=== PATIENT | female | born 1975 | race Caucasian/White ===

== ENCOUNTER 2017-02-26 07:16 | Day surgery (SDC) | payer OTHER ==
[~2017-02-26] VITALS: Ht 172.7 cm; Wt 102.2 kg
[2017-02-26] VITALS (13 sets, daily range): BP systolic 111–135; BP diastolic 62–85; PULSE 74–93; RESP 13–20; O2SAT 94–100
[~2017-02-26 07:16] MED LIST: BUPR150T8 PO; Bupivacaine Liposome 1.3% 20 mL Inj INFILTRATE ONE; HYDR-3091 PO; Lactated Ringer's 1,000 ML IV ONE
[2017-02-26] MEDS ORDERED: Ondansetron 2 mg/mL 2 mL Inj ONE (07:17)
[2017-02-26] MEDS ORDERED: Propofol 10,000 mCg/mL 20 mL Inj ONE (07:17)
[2017-02-26] MEDS ORDERED: Ropivacaine-PF 0.5% 30 mL Inj ONE (07:17)
[2017-02-26] MEDS ORDERED: MetoCLOpramide 5 mg/mL 2 mL Inj ONE (07:17)
[2017-02-26] MEDS ORDERED: fentaNYL-PF 50 mCg/mL 2 mL Inj ONE (07:17)
[2017-02-26] MEDS ORDERED: ALPR0.5T PO (07:34)
[2017-02-26] MEDS ORDERED: CeFAZolin 2 Gm/50 mL D5W Duplex Bag IV ONE (07:35)
[2017-02-26] MEDS: Vancomycin Inj 1,500 MG in 0.9% Sodium Chloride 500 ML IV ONE ×2 (07:53→07:58)
[2017-02-26] MEDS: CeFAZolin 2 Gm/50 mL D5W IV Premix IV ONE ×2 (07:57→09:09)
[2017-02-26] MEDS ORDERED: Bupivacaine-MPF 0.5% W/EPI 30 mL Inj INFILTRATE ONE (09:43)
[2017-02-26] MEDS ORDERED: Lactated Ringer's 500 ML IV PRN (09:46)
[2017-02-26] MEDS ORDERED: Lactated Ringer's 1,000 ML IV SCH (09:46)
[2017-02-26] MEDS ORDERED: Phenylephrine 10,000 mCg/mL Inj IVPUSH PRN (09:50)
[2017-02-26] MEDS ORDERED: MetoCLOpramide 5 mg/mL 2 mL Inj IVPUSH PRN (09:50)
[2017-02-26] MEDS ORDERED: Atropine 0.4 mg/mL Inj IVPUSH PRN (09:50)
[2017-02-26] MEDS ORDERED: Ondansetron 2 mg/mL 2 mL Inj IVPUSH PRN (09:50)
[2017-02-26] MEDS ORDERED: HYDROmorphone 1 mg/mL Inj IVPUSH PRN (09:50)
[2017-02-26] MEDS ORDERED: EPHEDrine Sulfate 50 mg/mL Inj IVPUSH PRN (09:50)
[2017-02-26] MEDS ORDERED: Labetalol 5 mg/mL 20 mL Inj IV PRN (09:50)
--- NOTE | 2017-02-26 09:50 | PCM.HPANE ---
Patient Data Date of Service: Feb 26, 2017 (0830) Surgeon Admitting Provider: Attending Provider:Peter Benton MD Primary Care Physician:Ross Cates Other Provider:Cortes Muñoz Anesthesia Reason for Visit Left Knee Pain Ht/WT & BMI Height (Feet): 5 Height (Inches): 8 Weight (Kilograms): 102.2 Body Mass Index 34.00 Allergies Coded Allergies: No Known Allergies (Unverified , 02/19/17) Past Anesthesia History Anesthesia History: Denies:: Abnormal Airway, Anesthesia Reactions, Difficult Intubation, Fam Anesthesia Reaction, Fam Malignant Hypertherm, Malignant Hyperthermia Diabetes History Hx Diabetes?: No MRSA MRSA: No Medications Hypertension Medication: No Home Meds Incl Beta Nithin: No Reported Medications Alprazolam (Xanax)0.5 Mg Tablet0.5 Mg PO TID PRN For Anxiety Ref 0 02/26/17 Bupropion ER (Wellbutrin SR)150 Mg Tablet.er150 Mg PO BID Ref 0 02/19/17 Hydrocodone-Acetaminophen 7.5-300 mg 1 Each Tablet1 Each PO Q4 PRN For Pain Ref 0 02/19/17 History History of ENT Problems?: Yes HEENT History: Positive for:: TMJ (grinds teeth, no nightguard) Denies:: Abnormal Airway Cataracts Difficult Intubation Dysphagia Glaucoma Hearing Problem Sinus Problem Denture Type: None Teeth Condition: Broken Teeth (see below) Other HEENT Pertinent History: chipped tooth- canine tooth in back, filling fell out Hx of Heart Problems?: No Cardiovascular History: Denies:: AICD Abdominal Aortic Aneurism Atrial Fibrillation Cardiac Surgery Chest Pain Congestive Heart Failure Coronary Artery Disease Edema Heart Murmur Hypertension Irregular Heartbeat Pacemaker Peripheral Vascular Rheumatic Fever Thrombophlebitis Valvular Heart Disease Hx of Respiratory Problem?: No Respiratory History: Denies:: Asthma COPD Chest Surgery Cough Dyspnea Emphysema Hemoptysis Oxygen Administration Pneumonia Pulmonary Embolism Tuberculosis Use of C-PAP Machine Use of Inhalers / NEBS Hx Neurologic Problems?: No Neurological History: Denies:: Alzheimer's Disease CVA Dementia Dizziness Headaches Multiple Sclerosis Parkinson's Disease Peripheral Neuropathy Seizures TIA Hx of GI Problems?: No Gastrointestinal History: Denies:: Cirrhosis Diverticulitis Gall Bladder Disease Gastroesphageal Reflux Gastrointestinal Bleeding Heartburn Hepatitis Hiatal Hernia Liver Disease Rectal Bleeding Hx of Problems?: No Genitourinary History: Denies:: HX of Hemodialysis Kidney Stones Urinary Tract Infection HX of Peritoneal Dialysis: No Female Hx: Denies:: Currently Endometriosis Pelvic Inflammatory Problems with Breasts? Skin History: Denies:: History Skin Disorders? Pressure Ulcers Hx Musculoskeletal Problems?: Yes Musculoskeletal History: Positive for:: Musculoskeletal Trauma (left knee current admission problem) Osteoarthritis Rheumatoid Arthritis Denies:: Back Injury Degenerative Joint Fibromyalgia Joint Replacement Myasthenia Gravis Systemic Lupus Hx of Psycho/Social Problems?: Yes Psycho Social History: Positive for:: Hx Depression Denies:: Anxiety Bipolar Disorder Suicide Attempt Hx Surgeries?: Yes (right knee acl, right ankle bone spur, ) Hx Any Other Health Problems?: Yes Other History: Denies:: Cancer Thyroid Disease History Blood Transfusions: Positive for:: Accept Blood Products? Denies:: Blood Transfusions Hx Diabetes: No Hx Alcohol Use: YesAlcoholic Drinks Per Day: rarely- holidaysHx Substance Use : NoHave You Smoked inLast 12 mo: No Stop/Bang S-Snoring: Do You Snore Loudly: No T-Tired: feel tired, fatigued: No O-Obsered: Observed not breath: No P-Blood Pressure: treated: No B- Body Mass Index > 35 kg/m2: No A- Age over 50: No N- Neck Large Circumference: No G- Gender Male: No TIARA Total Score: 0 Risk Assessment Category Category 1A: Patient has history of documented sleep apnea, and HAS NOT received any narcotic, sedative or anesthesia administration during this stay. Category 1B: Patient has history of documented sleep apnea, and HAS received any narcotic , sedative or anesthesia administration during this stay Category 2: Patient has SUSPECTED Obstructive Sleep Apnea, and HAS received any narcotic , sedative or anesthesia administration during this stay. Category 3: Patient has SUSPECTED Obstructive Sleep Apnea and HAS NOT received narcotic, sedative or anesthesia administration during this stay. Category 4: Outpatient in Procedural Areas with known sleep apnea or who screen positive for High Risk via the STOP/BANG questionnaire. Exam Exam Vital Signs Vital Signs Date Time Temp Pulse Resp B/P Pulse Ox O2 Delivery O2 Flow Rate FiO2 02/26/17 07:57 36.5 86 20 135/85 96 Room Air General Appearance: Alert, Oriented X3, Cooperative, No Acute Distress HEENT/AIRWAY: MP 2, Neck Movement (FROM), Mouth Opening (3 FBMO) Lungs: Clear to Auscultation, Normal Air Movement Heart: Exam Unremarkable, Regular Rate/Rhythm, No Murmurs/Rubs/Gallops Meds/Labs/Diagnostics Admission Meds Current Medications Cefazolin Sodium/ Dextrose 2 gm/ Premix 50 ml @ 100 mls/hr PREOP ONCE IV Last administered on 02/26/17 07:57; Start 02/26/17 at 06:00; Stop 02/26/17 at 06:29; Status DC Vancomycin HCl 1500 mg/Sodium Chloride 500 ml @ 333.333 mls/hr PREOP ONCE IV Last administered on 02/26/17 07:58; Start 02/26/17 at 06:00; Stop 02/26/17 at 07:29; Status DC Tranexamic Acid 1000 mg/Sodium Chloride 110 ml @ 660 mls/hr Q2H IV Last administered on 02/26/17 07:58; Start 02/26/17 at 06:00; Stop 02/26/17 at 08:09 ; Status DC Lactated Ringer's (Lr) 1,000 ml @ 120 mls/hr Q8H20M ONCE IV Last administered on 02/26/17 07:33; Start 02/26/17 at 05:00; Stop 02/26/17 at 13:19 Bupivacaine HCl/ Epinephrine Bitart (Sensorcaine-MPF 0.5% W/EPI Inj) 30 ml STK- MED ONCE INFILTRATE Last administered on 02/26/17 07:52; Start 02/26/17 at 07: 52; Stop 02/26/17 at 07:59; Status DC Ketorolac Tromethamine (Toradol Inj) 30 mg STK-MED ONCE INFILTRATE Last administered on 02/26/17 07:55; Start 02/26/17 at 07:55; Stop 02/26/17 at 07:59 ; Status DC Plan Impression Patient chart reviewed, patient interviewed and anesthestic plan with risks, benefits, and alternatives discussed, and informed consent obtained. NPO per Anesth. Guidelines: Yes ASA Physical Status: ASA2 Mod Systemic Disease Anesthetic Plan: GA, Regional Block (left femoral nerve block requested by Dr. Benton because of the patient's chronic opioid use) Bene/Risks/Altern/Consents: Yes HP Complete Prior to Induction: Yes Cecilio Reyes MD Feb 26, 2017 09:50
[2017-02-26] MEDS ORDERED: Gentamicin 40 mg/mL 2 mL Inj IRRIGATION ONE ×2 (10:01)
[2017-02-26] MEDS ORDERED: Polyethylene Glycol (PEG) 17 Gm Powder PO PRN (10:30)
[2017-02-26] MEDS ORDERED: Magnesium Hydroxide 10 mL Oral Concentration PO PRN (10:30)
[2017-02-26] MEDS ORDERED: Sodium Biphos-Phos 133 mL Enema RECTAL PRN (10:30)
[2017-02-26] MEDS ORDERED: diphenhydrAMINE 25 mg Capsule PO PRN (10:30)
[2017-02-26] MEDS ORDERED: Vancomycin Dose per Pharmacist XX ONE (10:30)
[2017-02-26] MEDS: fentaNYL-PF 50 mCg/mL 2 mL Inj IVPUSH PRN ×2 (11:15→11:51)
--- NOTE | 2017-02-26 11:30 | DRSVH ---
PROCEDURE: X-RAY LEFT KNEE, ONE OR TWO VIEWS ([id number]) INDICATIONS: POST OP TECHNIQUE: 2 views of of the knee acquired. COMPARISON: [facility], CR, XR KNEE ARTHRITIC SERIES , 01/03/2017, 16:20. FINDINGS: Bones: Patient is status post medial unicompartmental knee joint arthroplasty. Hardware components are in expected positions with near-anatomic alignment. Visualized bony structures are intact. Soft tissues: Overlying postoperative changes are noted. IMPRESSION: 1. Expected postsurgical changes status post left medial unicompartmental arthroplasty. Dictated by: Will Celis M.D. on 02/26/2017 at 11:28 Approved by: Will Celis M.D. on 02/26/2017 at 11:29
--- NOTE | 2017-02-26 12:38 | PCM.ANEP1 ---
Post Anesthesia PACU Phase 1 Assessment Vital Signs Vital Signs Date Time Temp Pulse Resp B/P Pulse Ox O2 Delivery O2 Flow Rate FiO2 02/26/17 12:15 36.5 75 16 111/63 98 Nasal Cannula 3 02/26/17 12:00 74 14 122/64 97 Nasal Cannula 3 02/26/17 11:45 75 16 122/64 98 Nasal Cannula 3 02/26/17 11:30 80 17 124/71 99 Nasal Cannula 3 02/26/17 11:15 36.3 77 16 128/62 100 Nasal Cannula 3 02/26/17 11:00 82 17 122/65 100 Simple Mask 9 02/26/17 10:55 84 18 133/67 100 Simple Mask 9 02/26/17 10:50 86 18 126/62 100 Simple Mask 9 02/26/17 10:48 36.3 84 13 124/68 100 Simple Mask 9 02/26/17 07:57 36.5 86 20 135/85 96 Room Air Anesthetic Administered: GA, Regional Block (Left femoral nerve block) Level of Alertness: Awake, talking BERTRAND's with Equal Strength: Yes (except for distribution of block) Pain: No Nausea or Vomiting: No CV Function & Hydration Stable: Yes Airway Device: N/A Oxygen Delivery: Nasal Cannula Lungs: Clear to Auscultation, Normal Air Movement Dermatome Level: Full Sensation (except for distribution of block) PACU Phase 2 Assessment Complications: No Follow up Care: N/A Patient Instructions Provided: N/A Cecilio Reyes MD Feb 26, 2017 12:38
--- NOTE | 2017-02-26 13:00 | NUR ---
Post op Pt arrived to floor @ 1230. Alert and oriented. Oriented to room. Arrived on 2L O2 sats 100%. Taken off O2. Hemovac clamped until 1550. Pain 4/10 on arrival and medicated with oxycodone. Pt states leg is numb from femoral block which should last 24 hours. pt is able to wiggle toes. 2 person sba to bsc with a pivot transfer which pt tolerated well. Enc to cough and deep breath. Care conts
[2017-02-26] MEDS ORDERED: HYDROcodone-APAP 5-325 mg Tablet PO PRN (13:30)
[2017-02-26] MEDS: Lactated Ringer's 1,000 ML IV SCH ×2 (14:52→17:20)
[2017-02-26] MEDS: buPROPion SR 150 mg ER12 Tablet PO SCH (17:19)
[2017-02-26] MEDS: CeFAZolin Inj 2 GM in IV Premix 1 EACH IV SCH (17:19)
[2017-02-26] MEDS: Sodium Chloride LOK Flush 10 mL Syringe IV SCH ×2 (17:28→23:32)
[2017-02-26] MEDS: Senna-Docusate 8.6-50 mg Tablet PO SCH (19:52)
[2017-02-26] MEDS ORDERED: Vancomycin Inj 1,250 MG in 0.9% Sodium Chloride 250 ML IV ONE (20:00)
[2017-02-27] MEDS: CeFAZolin Inj 2 GM in IV Premix 1 EACH IV SCH (00:47)
[2017-02-27 01:35] VITALS: BP 127/76; PULSE 74; RESP 20; O2SAT 98
--- NOTE | 2017-02-27 02:14 | NUR ---
Pain At beginning of shift pain was around a 3/10. Receiving Oxycodone 10mg PO [id number] with mostly effective results. Block from surgery starting to wear off. Patient states sensation is coming back to leg. Now rating pain around a 4/10. Received Toradol IVP for breakthrough pain with effective results. Resting with eyes closed upon reassessment.
--- NOTE | 2017-02-27 04:08 | OP ---
[address] [address] OPERATIVE REPORT PATIENT: JANNET DIEGO : 1975 MR#: [id number] ADMIT: 02/26/2017 JOB ID: [id number] DATE OF SURGERY: 02/26/2017 PREOPERATIVE DIAGNOSIS(ES): Advanced medial compartment osteoarthritis. POSTOPERATIVE DIAGNOSIS(ES): Advanced medial compartment osteoarthritis with a complex lateral meniscal tear. SURGEON: Peter Benton MD WHEAT SHIPPER: Sonia Smiley PA-C. Business Development Assistant required due to the complexity of the operation. INDICATIONS: This young woman has had progressive significant disability associated with her osteoarthritis, failed conservative treatment including chronic narcotic use. She elects to proceed with an arthroscopy with evaluation for total versus a partial knee replacement. She understands the major complexity of this operation, significant issues surrounding her young age, but wishes to proceed due to the unresponsive disability she experiences. SURGICAL PROCEDURE: 1. Arthroscopic lateral meniscectomy. 2. Unicompartmental knee arthroplasty. PROCEDURE: The patient was prepped and draped in the usual sterile fashion. As the patient had lateral-sided pain, but no radial radiographic changes and a strong desire for unicompartmental knee arthroplasty we proceeded with a diagnostic arthroscopy, which demonstrated advanced medial compartment osteoarthritis. No articular cartilage defects of the lateral compartment or patellofemoral joint. An intact anterior cruciate ligament and a complex tear of the lateral meniscus. Following this, a lateral portal was placed and an arthroscopic lateral meniscectomy was performed with a meniscal resector blade and baskets. The arthroscope was removed from the knee and all lavage fluid was removed. Following this, an anteromedial approach was made. Dissection was carried down. The patellar osteophyte was removed. A tibial alignment guide was utilized and a proximal tibial cut was made. The 9 mm spacer block produced excellent alignment and soft tissue tension and a distal femoral cut was made. The femur was sized to a 5 chamfer cutting block, fixed in appropriate position. Rotation, drill holes and chamfer cuts were made. Tibia was sized to a D component and a trial reduction and a 9 mm polyethylene produced excellent soft tissue tracking and alignment. All meniscal tissue and osteophytes were removed. Pressurized lavage was followed by pressurized cementation of the components. Excess cement was removed during the curing process. A deep Hemovac drain was left. After the tourniquet was let down and hemostasis was achieved. Deep closure with #2 Quill deep followed by 2-0 Vicryl, 3-0 and a 4-0 intracuticular stitch.
[2017-02-27 05:33] LABS: BASOPHILS % (AUTO) 0 % (0-3); EOSINOPHILS % (AUTO) 0 % (0-5); MONOCYTES % (AUTO) 5.7 % (4-12); Mean Corpuscular Hemoglobin 29.2 pg (27.0-35.0); Mean Corpuscular Volume 91.7 fL (81-100); NEUTROPHILS % (AUTO) 82.1 % (40-74); Platelet Count 240 bil/L (150-400)
[2017-02-27 05:40] VITALS: BP 143/79; PULSE 78; RESP 20; O2SAT 96
[2017-02-27] MEDS: Lactated Ringer's 1,000 ML IV SCH (07:00)
--- NOTE | 2017-02-27 08:11 | PCM.PNORTH ---
Subjective Date of Service: Feb 27, 2017 Visit Information: Reason for Visit Left Knee Pain Surgery/Surgery Date Reid BURCH 02/26/17 Post-Op Day # 1 Date of Admission: Hospital Day # Subjective Patient states her block is starting to wear off and she is beginning to feel some discomfort and burning sensation. She admits that she has a low pain threshold and has chronically been on Vicodin. She is requesting extra pain medication when she goes home. Postop General: No Complaints Pain Management: PO, IV Push (Toradol) Objective Exam Objective Patient sitting up in bed Vital Signs and I/O Vital Sign - Last Date Time Temp Pulse Resp B/P Pulse Ox O2 Delivery O2 Flow Rate FiO2 02/27/17 05:40 36.5 78 20 143/79 96 Room Air 02/26/17 12:36 2.00 Intake and Output 02/26/17 02/26/17 02/27/17 Cumulative From/Thru 15:00 23:00 07:00 02/19/17 11:41 - 02/27/17 03:55 Intake Total 1860 ml 200 ml 958 ml 3018 ml Output Total 30 ml 270 ml 300 ml Balance 1830 ml -70 ml 958 ml 2718 ml Intake Oral 200 ml 200 ml IV Total 1860 ml 958 ml 2818 ml Output Urine Total 200 ml 200 ml Drainage Total 70 ml 70 ml Estimated Blood Loss 30 ml 30 ml # Bowel Movements 0 0 Lab & Micro Results Laboratory Tests Test 02/27/17 04:52 White Blood Count 16.3th/mm3 (3.8-10.1) Red Blood Count 3.73mil/mm3 (3.90-5.20) Hemoglobin 10.9g/dL (12.0-15.6) Hematocrit 34.2% (35.0-46.0) Mean Corpuscular Volume 91.7fL (81-100) Mean Corpuscular Hemoglobin 29.2pg (27.0-35.0) Mean Corpuscular Hemoglobin Concent 31.9% (32.0-37.0) Red Cell Distribution Width 12.5% (12.3-15.4) Platelet Count 240bil/L (150-400) Neutrophils (%) (Auto) 82.1% (40-74) Lymphocytes (%) (Auto) 12.0% (14-46) Monocytes (%) (Auto) 5.7% (4-12) Eosinophils (%) (Auto) 0% (0-5) Basophils (%) (Auto) 0% (0-3) Result Diagram: 02/27/17 0452 General Appearance: Alert, Oriented X3, Cooperative, No Acute Distress Extremities: No Compartment Syndrom Noted, Thigh & Calf Soft/Nontender Postop Sensory Motor: Distal Motor Intact, Movement in Toes, Distal Sensation Intact, NVI Distally SURGICAL WOUND : Wound Location/Description Perioperative dressings c/d/i Drain Location Body Site: Knee Wound Drainage Type: Hemovac Activity: Ambulate with PT (WBAT with FWW) Assessment & Plan Impression POD #1 1. Left medial unicompartmental knee arthroplasty 2. Left knee lateral meniscus debridement Problems: Plan Weightbearing: Weightbearing as tolerated with a front wheeled walker. DVT prophylaxis: Aspirin 81 mg twice a day 6 weeks Physical therapy for transfers, progressive ambulation, strengthening Wound care: Keep the current bulky dressings intact until tomorrow. Tomorrow, post op day #2, patient may remove dressings, apply an island dressing over the incision, and then pull on compression stockings. Compression stockings should be worn on both legs to reduce the risk of blood clots. Analgesia: Percocet (oxycodone /acetaminophen) 7.5/325mg one every 4 hours as need for pain. I will also have you taken Aleve twice a day (preferably in the afternoon and evening to reduce pain and swelling). In addition, I will have you take Vistaril (hydroxyzine pamoate) 25mg every 4 hours as needed for discomfort and spasms. Discharge plan: Discharge home today. Start outpatient physical therapy next week. Nursing: Please apply ice to the knee. Please give an island dressing x2 to patient to take home. Please pull the hemovac drain before discharge. Follow-up plan: In 2 weeks at [facility] with DEANNA for wound check and at [address] Benton with x-rays Sonia Smiley PA-C Feb 27, 2017 08:11
--- NOTE | 2017-02-27 08:15 | PCM.DIOPOR ---
OP Ortho Discharge Instruction Dates of Hospitalization Date of Discharge: Feb 27, 2017 Providers Admitting Physician: Primary Care Physician: Ross Cates Attending Physician: Peter Benton MD Diagnosis at Time of Discharge Post operative diagnosis Left knee medial osteoarthritis and lateral meniscus tear Activity Activity-General: Be up and about, Elevate & ice extremity, Ice incision 3-5 time/day for 20min Left Lower Extremity: Weight Bearing as tolerated Discharge Assist Device: Front Wheeled Walker Dressing and Incisional Care Dressing Care: Keep dressing clean, dry & intact, Allow Steri Stripes to fall off, Remove outer dressing after 24 hrs Hygiene: May shower (with dressing covered), DO NOT soak incision under water, NO bathtub, hot tub or whirlpool Additional Instructions Discharge Instructions Weightbearing: Weightbearing as tolerated with a front wheeled walker. DVT prophylaxis: Aspirin 81 mg twice a day 6 weeks Wound care: Keep the current bulky dressings intact until tomorrow. Tomorrow, post op day #2, patient may remove dressings, apply an island dressing over the incision, and then pull on compression stockings. Compression stockings should be worn on both legs to reduce the risk of blood clots. Analgesia: Percocet (oxycodone /acetaminophen) 7.5/325mg one every 4 hours as need for pain. I will also have you taken Aleve twice a day (preferably in the afternoon and evening to reduce pain and swelling). In addition, I will have you take Vistaril (hydroxyzine pamoate) 25mg every 4 hours as needed for discomfort and spasms. YOU WILL HAVE PAIN because this is a major surgery. Please take your pain medication only as prescribed. Ice and elevate frequently to reduce pain and swelling as narcotics do not treat pain, only mask it. Discharge plan: Discharge home today. Start outpatient physical therapy next week. Follow-up plan: In 2 weeks at [facility] with DEANNA for wound check and at [address] Benton with x-rays Sonia Smiley PA-C Feb 27, 2017 08:15
[2017-02-27] MEDS ORDERED: OXYC-465 PO (08:21)
[2017-02-27] MEDS ORDERED: HYDR25CA PO (08:21)
[2017-02-27] MEDS ORDERED: ASPI-973 PO (08:21)
[2017-02-27] MEDS ORDERED: DOCU-41 PO (08:21)
[2017-02-27] MEDS ORDERED: ALPRAZolam 0.5 mg Tablet PO PRN (08:30)
[2017-02-27] MEDS: Senna-Docusate 8.6-50 mg Tablet PO SCH (08:35)
[2017-02-27] MEDS: buPROPion SR 150 mg ER12 Tablet PO SCH (08:35)
[2017-02-27] MEDS: Sodium Chloride LOK Flush 10 mL Syringe IV SCH (08:37)
--- NOTE | 2017-02-27 10:30 | PCM.DC.ORT ---
Discharge Summary Date of Service: Feb 27, 2017 Date of Hospital Admission: Date of Discharge: Feb 27, 2017 Reason for Hospitalization: Left knee medial osteoarthritis and left knee lateral meniscus tear Procedures Performed: Left medial unicompartmental knee arthroplasty and left lateral partial meniscectomy Hospital Course: The patient was admitted to the hospital on 02/26/2017 and underwent the above procedure. Antibiotic prophylaxis consisting of Ancef and vancomycin. The surgeon was Dr. Benton. A Palm was placed perioperatively. Patient tolerated the procedure well and was transferred to recovery room in stable condition. Patient had physical therapy to work on ambulation and transfers. Weightbearing as tolerated with walker. Pain was managed with Dilaudid, Percocet , Vistaril, Toradol. DVT prophylaxis: Aspirin 81mg and SCDs. Hospital course was uncomplicated. Patient was able to perform adequately enough to be discharged home on postop day 1. Follow-up: at [facility] 2 weeks postop for wound check and at [address] Benton with x-ray. Diagnosis at Time of Discharge Status post Left medial unicompartmental knee arthroplasty and left lateral partial meniscectomy Problems: Disposition: Stable, d/c to home Alprazolam (Xanax) 0.5 Mg Tablet 0.5 MG PO TID PRN PRN For Anxiety Aspirin (Aspirin) 81 Mg Tablet 81 MG PO BID Bupropion ER (Wellbutrin SR) 150 Mg Tablet.er 150 MG PO BID Docusate Sodium (Colace) 100 Mg Capsule 100 MG PO BID PRN PRN For Constipation Hydroxyzine Pamoate (Vistaril) 25 Mg Capsule 25 MG PO Q4H PRN PRN For Insomnia oxyCODONE-Acetaminophen 7.5-325 mg (oxyCODONE-Acetaminophen 7.5-325 mg) 1 Each Tablet 1 TAB PO Q4H PRN PRN For Pain Sonia Smiley PA-C Feb 27, 2017 10:30
[2017-02-27 13:33] VITALS: BP 130/82; PULSE 88; RESP 18; O2SAT 99
--- NOTE | 2017-02-27 15:48 | NUR ---
Discharge Patient discharged home with mother via wheelchair and personal vehicle. IV DC'd intact. Hemovac DC'd with cat scan technologist, Shalonda, and was intact. Patient did experience an increase in pain with drain removal and was then medicated with toradol before discharge. Discharge information given and gone over with patient and her mother including new prescription medications, decreasing swelling, activity changes, and follow up appointments. Hard copies of prescriptions and informational packets accompanied patient when discharged. Talked with patient about changing her dressing tomorrow and placing a smaller dressing over incision once bulky wrap is off. Patient did state that she was aprehensive about the medication for pain management and stated that she was unsure if it will help but will try to take it as prescribed and see how it works. Encouraged managing the swelling to help bring down pain.
== END 2017-02-27 15:37 | disposition home or self-care (01) ==
LOC: SAS 07:16 → OSC 12:40 → SAS 02-27 15:37
PROVIDERS: ATTEND Orthopaedic Surgery
DX: M23.262 Derangement of other lateral meniscus due to old tear or injury, left knee (principal); M17.12 Unilateral primary osteoarthritis, left knee; M25.562 Pain in left knee; F32.9 Major depressive disorder, single episode, unspecified
CPT/HCPCS: 27446; 36415; 73560; 76942; 85025; 97110; 97116; 97161; C1713; C1776; J0690; J1170; J1580; J1885; J2250; J2405; J2704; J2765; J2795; J3010; J3370; J7040; J7050; J7120